=== PATIENT | female | born 1945 | race Caucasian/White ===

== ENCOUNTER → 2016-08-28 | Outpatient (CLI) | payer MEDICARE ==
[~2016-08-28] MED LIST: ASCO100083 PO; ATOR40TA70 PO; BUPIVACAINE 0.5% 30 ML (SENSORCAINE) VIAL ONE; CA C1TAB39 PO; CALCIUM; CARV12.53 PO; CARV25TA PO; CARV6.25 PO; CHOL100084 PO; CRV6.25T PO; DEXAMETHASONE PF 10 MG/ML (DECADRON) VIAL ONE; FAMO20TA5 PO; MAG; MEPIVACAINE (CARBOCAINE) 2% 50 ML VIAL ONE; MULT-974 PO; Multivitamin; RANI150T90 PO; STRESS; VITA1CAP21 PO; VITB1TAB PO; Vit B Complex; Vitamin C; Vitamin D; WARF5TAB6 PO; ZINC
--- OUTSIDE RECORDS SUMMARY | 2016-08-28 12:14 | XMS REPORT | Continuity of Care Document ---
Author Author [facility] Organization [facility] Address Unknown Phone Unavailable Care Team Providers Care Barker Peeler Name Role Phone MARCELLE GRACIA DO PCP Insurance Providers Payer Name Policy Number Subscriber Name Relationship Wps Medicare [id number] Denisha Avery Self / Same As Patient Self Pay Fin [place] [place] [employer] Review [id number] Denisha Avery Self / Same As Patient Advance Directives Directive Response Recorded Date/Time Advance Directives Yes 10/12/14 12:34pm Health Care Power of Quality Eng Yes 10/12/14 12:34pm Organ Donor Yes 10/12/14 12:34pm Resuscitation Status Full Code 10/12/14 12:34pm Problems No known problems or medical conditions. Medications Medication Dose Route Sig Days/Qty Instructions Order Date Discontinued Date Status Warfarin Sodium 5 Mg PO PM @ 1700 10/12/14 Active Carvedilol 3.125 Mg PO TWICE A DAY TAKES 1/2 (6.25MG) TABLET 10/12/14 10/17/14 Discontinued [Calcium, Mag, Zinc] 10/12/14 10/12/14 Discontinued [Vitamin C] 10/12/14 10/12/14 Discontinued [Vit B Complex] 10/12/14 10/12/14 Discontinued [Stress Tabs] 10/12/14 10/12/14 Discontinued [Multivitamin] 10/12/14 10/12/14 Discontinued [Vitamin D] 10/12/14 10/12/14 Discontinued Ca Carbonate/Mag Oxide/Cu/Znox 1 Tab PO DAILY 10/12/14 Active Ascorbic Acid 1,000 Mg PO DAILY 10/12/14 Active Vitamin B Complex 1 Cap PO BEDTIME 10/12/14 Active Vitb&C/Iron Fum/Fa/Vit E/Aa#16 1 Tab PO BEDTIME 10/12/14 Active Multivitamin 1 Tab PO BEDTIME 10/12/14 Active Cholecalciferol 1,000 Unit PO BEDTIME 10/12/14 Active Ca Carbonate/Mag Oxide/Cu/Znox 3 Tab PO BEDTIME 10/12/14 Active Ranitidine Hcl 150 Mg PO NOON 10/12/14 10/13/14 Discontinued Carvedilol 6.25 Mg PO TWICE A DAY 60 Qty 10/17/14 Active Social History Social History Problem Response Recorded Date/Time Alcohol Use Denies Use 10/12/2014 12:38pm Recreational Drug Use No 10/12/2014 12:38pm Recent Foreign Travel No 10/12/2014 12:38pm Recent Infectious Disease Exposure No 10/12/2014 12:38pm Hospitalization with Isolation Denies 10/17/2014 10:11pm Sexually Transmitted Disease No 10/12/2014 12:38pm HIV/AIDS No 10/12/2014 12:38pm Smoking Status Former Smoker 10/12/2014 12:35pm Query Response Start Date Stop Date Smoking Status Former Smoker 07/29/1999 Hospital Discharge Instructions Patient Instructions Physician Instructions Follow up/Plan Patient is to call Dr. Guevara's office for office visit and follow-up as well as call about getting enrolled in pacemaker clinic for a newly placed Medtronic since the pacemaker placed in his patient on October 15, 2014 Heart Healthy Diet Do not lift arm on side of device placement above head for 4 weeks. Do not push and pull heavy objects for 4 weeks. Activity as tolerated. Leave dressing on until follow up at the office. Plan of Care Discharge Date 10/17/14 9:35pm Disposition 30 STILL A PATIENT Instructions/Education Provided CHF Pacemaker (DC) Forms Provided PDI Pacemaker/ICD Prescriptions See Medications Section Referrals (Unspecified) Reason(s) for Referral: Please call the Dr Nixon office for follow up appt on saturday. Office number is [phone]. Please tell the staff he wants appt for Saturdayoctober 22. (Unspecified) Reason(s) for Referral: follow up appt with Dr Guevara, please call on saturday to schedule for pacemaker clinic and follow up in 1-2 weeks. Functional Status Query Response Date Recorded Comprehension Ability Understands Concepts October 17, 2014 8:00am Allergies, Adverse Reactions, Alerts Allergen Type Severity Reaction Status Last Updated CODIENE Adverse Reaction Unknown Active 06/02/10 Immunizations Name Given Type Date of Pneumonia Vaccine 07/29/10 Historical Date of Influenza Vaccine 05/06/14 Historical Tetanus Booster (TDap) More than 5yrs Historical Vital Signs Acute Vital Signs Vital Response Date/Time Temperature (Fahrenheit) 98.0 degrees F (97.6 - 99.5) Temperature (Calculated Celsius) 36.35200 degrees C (36.4 - 37.5) Temperature Source Tympanic Pulse Rate (adult) 60 bpm (60 - 90) Respiratory Rate 20 bpm (12 - 24) O2 Sat by Pulse Oximetry 95 % (88 - 100) Blood Pressure 143/83 mm Hg Pain Pain Intensity 0 Height (Feet) 5 feet Height (Inches) 1.00 inches Height (Calculated Centimeters) 154.375660 cm Weight (Pounds) 207 pounds Weight (Ounces) 6.0 oz Weight (Calculated Grams) 37164.622 gm Weight (Calculated Kilograms) 93.793784 kilograms Calculated BMI 39.11 Results Laboratory Results Test Name Result Units Flags Reference Collection Date/Time Result Date/ Time Comments White Blood Count 8.7 10^3/uL 4.3-11.0 10/15/2014 6:20am 10/15/2014 6: 38am Red Blood Count 3.99 10^6/uL L 4.35-5.85 10/15/2014 6:20am 10/15/2014 6: 38am Hemoglobin 12.2 G/DL 11.5-16.0 10/15/2014 6:20am 10/15/2014 6:38am Hematocrit 37 % 35-52 10/15/2014 6:20am 10/15/2014 6:38am Mean Corpuscular Volume 93 FL 80-99 10/15/2014 6:10/15/2014 6: 38am Mean Corpuscular Hemoglobin 31 PG 25-34 10/15/2014 6:10/15/2014 6: 38am Mean Corpuscular Hemoglobin Concent 33 G/DL 32-36 10/15/2014 6: 6:38am Red Cell Distribution Width 14.7 % H 10.0-14.5 10/15/2014 6:2014 6:38am Platelet Count 228 10^3/uL 130-400 10/15/2014 6:10/15/2014 6:38am Mean Platelet Volume 10.2 FL 7.4-10.4 10/15/2014 6:10/15/2014 6: 38am Neutrophils (%) (Auto) 71 % 42-75 10/15/2014 6:10/15/2014 6:38am Lymphocytes (%) (Auto) 19 % 12-44 10/15/2014 6:10/15/2014 6:38am Monocytes (%) (Auto) 8 % 0-12 10/15/2014 6:10/15/2014 6:38am Eosinophils (%) (Auto) 1 % 0-10 10/15/2014 6:10/15/2014 6:38am Basophils (%) (Auto) 1 % 0-10 10/15/2014 6:10/15/2014 6:38am Neutrophils # (Auto) 6.2 X 10^3 1.8-7.8 10/15/2014 6:10/15/2014 6: 38am Lymphocytes # (Auto) 1.7 X 10^3 1.0-4.0 10/15/2014 6:10/15/2014 6: 38am Monocytes # (Auto) 0.7 X 10^3 0.0-1.0 10/15/2014 6:10/15/2014 6: 38am Eosinophils # (Auto) 0.1 10^3/uL 0.0-0.3 10/15/2014 6:2010/15/2014 6 :38am Basophils # (Auto) 0.1 10^3/uL 0.0-0.1 10/15/2014 6:2010/15/2014 6: 38am Prothrombin Time 19.0 SEC H 12.2-14.7 10/17/2014 12:00pm 10/17/2014 12: 45pm INR Comment 1.6 H 0.8-1.4 10/17/2014 12:00pm 10/17/2014 12:45pm INTERPRETIVE DATA SUGGESTED THERAPEUTIC RANGE FOR INR'S: VENOUS THROMBOSIS, PULMONARY EMBOLISM, OR PREVENTION OF SYSTEMIC EMBOLISM (EG. IN ATRIAL FIBRILLATION): 2.0 - 3.0 MECHANICAL PROSTHETIC HEART VALVES: 2.5 - 3.5* *NOTE: INR'S UP TO 4.5 MAY BE NECESSARY IN SELECTED GROUPS OF HIGH RISK PATIENTS. [employer]ST [employer]ICIANS CONSENSUS CONFERENCE ON ANTITHROMBOTIC THERAPY (2000). Activated Partial Thromboplast Time 56 SEC H 24-35 10/12/2014 10:00am 10:25am Sodium Level 141 MMOL/L 135-145 10/15/2014 6:20am 10/15/2014 6:57am Potassium Level 4.1 MMOL/L 3.6-5.0 10/15/2014 6:20am 10/15/2014 6:57am Chloride Level 111 MMOL/L H 98-107 10/15/2014 6:20am 10/15/2014 6:57am Carbon Dioxide Level 20 MMOL/L L 21-32 10/15/2014 6:20am 10/15/2014 6: 57am Blood Urea Nitrogen 12 MG/DL 7-18 10/15/2014 6:20am 10/15/2014 6:57am Creatinine 0.65 MG/DL 0.60-1.30 10/15/2014 6:20am 10/15/2014 6:57am BUN/Creatinine Ratio 18 10/15/2014 6:20am 10/15/2014 6:57am Estimat Glomerular Filtration Rate > 60 10/15/2014 6:202014 6:57am GFR INTERPRETIVE DATA UNITS FOR ESTIMATED GFR (eGFR): mL/min/1.73 M2 REFERENCE RANGE FOR ESTIMATED GFR (eGFR) eGFR NORMAL eGFR >60 MODERATELY DECREASED eGFR 30-59 SEVERLY DECREASED eGFR 15-29 KIDNEY FAILURE <15 (OR DIALYSIS) Glucose Level 101 MG/DL 70-105 10/15/2014 6:20am 10/15/2014 6:57am Calcium Level 8.6 MG/DL 8.5-10.1 10/15/2014 6:20am 10/15/2014 6:57am Magnesium Level 2.0 MG/DL 1.8-2.4 10/12/2014 10:00am 10/12/2014 10: 32am Total Bilirubin 0.5 MG/DL 0.1-1.0 10/12/2014 10:00am 10/12/2014 10: 32am Alkaline Phosphatase 82 U/L 40-136 10/12/2014 10:00am 10/12/2014 10: 32am Aspartate Amino Transf (AST/SGOT) 20 U/L 5-34 10/12/2014 10:00am 2014 10:32am Alanine Aminotransferase (ALT/SGPT) 15 U/L 0-55 10/12/2014 10:00am 10:32am Total Creatine Kinase 38 U/L 29-168 10/12/2014 10:00am 10/12/2014 10: 32am Creatine Kinase MB 1.0 NG/ML <6.6 10/12/2014 10:00am 10/12/2014 10: 53am Troponin I < 0.30 NG/ML <0.30 10/13/2014 5:11am 10/13/2014 6:22am B-Type Natriuretic Peptide 166.0 PG/ML H <100.0 10/12/2014 10:00am 2014 10:40am Total Protein 8.0 G/DL 6.4-8.2 10/12/2014 10:00am 10/12/2014 10:32am Albumin 3.9 G/DL 3.2-4.5 10/12/2014 10:00am 10/12/2014 10:32am [facility] [place] Testing 2.28 UIU/ML 0.35-4.94 10/12/2014 10:00am 2014 10:53am Procedures Procedure Status Date Provider(s) Insertion of permanent pacemaker completed 10/15/14 NANI STOCK MD Tracing only of electrocardiogram completed 10/12/14 AMANDA JARAMILLO DO Color Doppler echocardiography completed 10/13/14 ALESSIO HUFFMAN MD Tracing only of electrocardiogram completed 10/13/14 ALESSIO HUFFMAN MD Tracing only of electrocardiogram completed 03/20/15 ALESSIO HUFFMAN MD Tracing only of electrocardiogram completed 10/15/14 ALESSIO HUFFMAN MD Encounters Encounter Location Date/Time Discharged Inpatient Via [facility] 10/14/14 3:11pm
== END ==
LOC: RAD 12:10
PROVIDERS: ATTEND Internal Medicine Cardiovascular Disease
DX: I70.213 Atherosclerosis of native arteries of extremities with intermittent claudication, bilateral legs (principal)
CPT/HCPCS: 93923

== ENCOUNTER → 2018-11-03 | Outpatient (CLI) | payer MEDICARE ==
[~2018-11-03] MED LIST changes: -BUPIVACAINE 0.5% 30 ML (SENSORCAINE) VIAL ONE; -DEXAMETHASONE PF 10 MG/ML (DECADRON) VIAL ONE; -MEPIVACAINE (CARBOCAINE) 2% 50 ML VIAL ONE
== END ==
LOC: CARD 11:42
PROVIDERS: ATTEND Nurse Practitioner Family
DX: I48.2 Chronic atrial fibrillation (principal); I51.7 Cardiomegaly; I08.1 Rheumatic disorders of both mitral and tricuspid valves
CPT/HCPCS: 93306

== ENCOUNTER 2020-08-30 06:05 | Emergency (ER) | payer MEDICARE ==
[~2020-08-30] VITALS: Ht 152 cm; Wt 80.0 kg
[2020-08-30] MEDS ORDERED: ASPIRIN 81 MG CHEW (CHILDREN'S ASA) ONE (06:14)
[2020-08-30] MEDS ORDERED: ASPIRIN 81 MG CHEW (CHILDREN'S ASA) PO ONE (06:30)
[2020-08-30 06:32] LABS: BASOPHILS # (AUTO) 0.1 10^3/uL (0.0-0.1); BASOPHILS % (AUTO) 1 % (0-10); EOSINOPHILS # (AUTO) 0.1 10^3/uL (0.0-0.3); EOSINOPHILS % (AUTO) 2 % (0-10); HEMATOCRIT 43 % (35-52); HEMOGLOBIN 14.2 g/dL (11.5-16.0); LYMPHOCYTES # (AUTO) 1.4 10^3/uL (1.0-4.0); LYMPHOCYTES % (AUTO) 20 % (12-44); MEAN CORPUSCULAR HEMOGLOBIN 30 pg (25-34); MEAN CORPUSCULAR HGB CONC 33 g/dL (32-36); MEAN CORPUSCULAR VOLUME 93 fL (80-99); MEAN PLATELET VOLUME 9.8 fL (9.0-12.2); MONOCYTES # (AUTO) 0.5 10^3/uL (0.0-1.0); MONOCYTES % (AUTO) 6 % (0-12); NEUTROPHILS # (AUTO) 5.2 10^3/uL (1.8-7.8); NEUTROPHILS % (AUTO) 71 % (42-75); PLATELET COUNT 239 10^3/uL (130-400); WHITE BLOOD COUNT 7.3 10^3/uL (4.3-11.0)
--- NOTE | 2020-08-30 06:40 | ED Chest Pain ---
General Chief Complaint: Chest Pain Stated Complaint: A-FIB Nursing Triage Note: TO ED VIA POV AND AMBULATORY TO ROOM 6 WITH C/O LEFT ARM PAIN, INTERMITTENT CP (HEAVINESS) STARTING YESTERDAY AT 0800, SOA WITH ACTIVITY. Nursing Sepsis Screen: No Definite Risk Source: patient Exam Limitations: no limitations History of Present Illness Date Seen by Provider: Aug 30, 2020 Time Seen by Provider: 06:05 Initial Comments Here with report of central chest pressure/heaviness and right arm feeling cold intermittently since yesterday. Started at about 8 AM. Worse with activity and resolves with rest. Has been happening throughout the night. Does have a pacemaker and has felt palpitations as well. Is short of breath with the vents but that also resolves with rest. Has had intermittent mild cough but no fever, chills, nausea, vomiting, sweating or diarrhea. Maximal 7 out of 10 but 0 out of 10 currently. Timing/Duration: 24 hours, intermittent, gone now Severity/Quality: moderate, pressure Location: central Radiation: no radiation Prior CP/Workup: cardiac cath, echocardiography, stress test ASA po NON DESTRUCTIVE TESTING SUPERVISOR: No NTG SL NON DESTRUCTIVE TESTING SUPERVISOR: No Associated Symptoms: No fever/chills; shortness of breath Allergies and Home Medications Allergies Uncoded Allergies: CODIENE (Adverse Reaction, Unknown, 06/02/10) Home Medications Ascorbic Acid 1,000 Mg Tab.chew, 1,000 MG PO HS, (Reported) Atorvastatin Calcium 40 Mg Tablet, 40 MG PO DAILY Prescribed by: RODGER MEYER on 11/23/14 1353 Ca Carbonate/Mag Oxide/Cu/Znox 1 Each Tablet, 3 TAB PO HS, (Reported) Carvedilol 12.5 Mg Tablet, 6.25 MG PO BID, (Reported) TAKES 1/2 (12.5MG) TABLET Cholecalciferol 1,000 Unit Tab, 1,000 UNIT PO HS, (Reported) Famotidine 20 Mg Tablet, 20 MG PO BID, (Reported) Multivitamin 1 Each Tablet, 1 TAB PO HS, (Reported) Vitamin B Complex 1 Cap Capsule, 1 CAP PO HS, (Reported) Vitb&C/Iron Fum/Fa/Vit E/Aa#16 1 Each Tablet, 1 TAB PO HS, (Reported) Warfarin Sodium 5 Mg Tablet, 5 MG PO PM @ 1700, (Reported) Patient Home Medication List Home Medication List Reviewed: Yes Review of Systems Review of Systems Constitutional: see HPI; No chills, No fever EENTM: No Symptoms Reported Respiratory: See HPI Cardiovascular: See HPI Gastrointestinal: Denies Abdominal Pain, Denies Nausea, Denies Vomiting Genitourinary: No Symptoms Reported Musculoskeletal: muscle pain, muscle cramps Skin: no symptoms reported Psychiatric/Neurological: No Symptoms Reported All Other Systems Reviewed Negative Unless Noted: Yes Past Pvotiud-Mlouls-Cjzxlc Hx Past Med/Social Hx: Reviewed Nursing Past Med/Soc Hx Patient Social History Alcohol Use: Denies Use Smoking Status: Former Smoker Recent Infectious Disease Expo: No Immunizations Up To Date Tetanus Booster (TDap): More than 5yrs Date of Pneumonia Vaccine: Jul 29, 2010 Date of Influenza Vaccine: May 06, 2014 Seasonal Allergies Seasonal Allergies: No Past Medical History Surgeries: Yes (Cataracts, Colonoscopy) Hysterectomy, Pacemaker Respiratory: No COPD Cardiac: Yes (CHF, Ischemic Heart Dz) Atrial Fibrillation, High Cholesterol Neurological: No 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 Uterus?) 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 Sexually Transmitted Disease: No HIV/AIDS: No Gastrointestinal: Yes Gastroesophageal Reflux, Diverticulosis, Hemorrhoids Musculoskeletal: Yes (Osteoarthritis) Endocrine: No Cataract Loss of Vision: Denies Hearing Impairment: Denies Cancer: Yes Uterine Psychosocial: No Integumentary: No Blood Disorders: No Family Medical History Reviewed Nursing Family Hx No Pertinent Family Hx Physical Exam Vital Signs Vital Signs - First Documented 08/30/20 06:07 Temp 37.1 Pulse 66 Resp 20 B/P (MAP) 165/69 (101) O2 Delivery Room Air Capillary Refill : Less Than 3 Seconds Height, Weight, BMI Height: 5'1.00" Weight: 202lbs. 6.0oz. 91.081743ee; 34.00 BMI Method:Stated General Appearance: No Apparent Distress, WD/WN HEENT: PERRL/EOMI, Pharynx Normal Neck: Non Tender, Supple Respiratory: Lungs Clear, Normal Breath Sounds Cardiovascular: Regular Rate, Rhythm, No Murmur Gastrointestinal: Non Tender, Soft Extremity: Normal Range of Motion, Non Tender Neurologic/Psychiatric: Alert, Oriented x3 Skin: Normal Color, Warm/Dry Progress/Results/Core Measures Results/Orders Lab Results Laboratory Tests Test 08/30/20 06:15 Range/Units White Blood Count 7.3 4.3-11.0 10^3/uL Red Blood Count 4.67 3.80-5.11 10^6/uL Hemoglobin 14.2 11.5-16.0 g/dL Hematocrit 43 35-52 % Mean Corpuscular Volume 93 80-99 fL Mean Corpuscular Hemoglobin 30 25-34 pg Mean Corpuscular Hemoglobin Concent 33 32-36 g/dL Red Cell Distribution Width 13.5 10.0-14.5 % Platelet Count 239 130-400 10^3/uL Mean Platelet Volume 9.8 9.0-12.2 fL Immature Granulocyte % (Auto) 0 % Neutrophils (%) (Auto) 71 42-75 % Lymphocytes (%) (Auto) 20 12-44 % Monocytes (%) (Auto) 6 0-12 % Eosinophils (%) (Auto) 2 0-10 % Basophils (%) (Auto) 1 0-10 % Neutrophils # (Auto) 5.2 1.8-7.8 10^3/uL Lymphocytes # (Auto) 1.4 1.0-4.0 10^3/uL Monocytes # (Auto) 0.5 0.0-1.0 10^3/uL Eosinophils # (Auto) 0.1 0.0-0.3 10^3/uL Basophils # (Auto) 0.1 0.0-0.1 10^3/uL Immature Granulocyte # (Auto) 0.0 0.0-0.1 10^3/uL Prothrombin Time 31.1 H 12.2-14.7 SEC INR Comment 3.0 H 0.8-1.4 Activated Partial Thromboplast Time 53 H 24-35 SEC Sodium Level 139 135-145 MMOL/L Potassium Level 4.1 3.6-5.0 MMOL/L Chloride Level 105 98-107 MMOL/L Carbon Dioxide Level 22 21-32 MMOL/L Anion Gap 12 5-14 MMOL/L Blood Urea Nitrogen 10 7-18 MG/DL Creatinine 0.73 0.60-1.30 MG/DL Estimat Glomerular Filtration Rate > 60 BUN/Creatinine Ratio 14 Glucose Level 102 70-105 MG/DL Calcium Level 9.3 8.5-10.1 MG/DL Corrected Calcium 9.3 8.5-10.1 MG/DL Magnesium Level 2.0 1.6-2.4 MG/DL Total Bilirubin 0.7 0.1-1.0 MG/DL Aspartate Amino Transf (AST/SGOT) 20 5-34 U/L Alanine Aminotransferase (ALT/SGPT) 14 0-55 U/L Alkaline Phosphatase 75 40-136 U/L Myoglobin 31.5 10.0-92.0 NG/ML Troponin I < 0.028 <0.028 NG/ML C-Reactive Protein High Sensitivity 0.33 0.00-0.50 MG/DL B-Type Natriuretic Peptide 95.0 <100.0 PG/ML Total Protein 7.6 6.4-8.2 GM/DL Albumin 4.0 3.2-4.5 GM/DL Coronavirus 2019 (ARMANDO) Negative Negative Micro Results Microbiology 08/30/20 Influenza Types A,B Antigen (SHANNON) - Final, Complete My Orders Orders - VJ GUZMAN MD Aspirin Chewable Tablet (Baby Aspirin Ch (08/30/20 06:14) Cbc With Automated Diff (08/30/20 06:18) Magnesium (08/30/20 06:18) Chest 1 View, Ap/Pa Only (08/30/20 06:18) Ekg Tracing (08/30/20 06:18) Comprehensive Metabolic Panel (08/30/20 06:18) Myoglobin Serum (08/30/20 06:18) Protime With Inr (08/30/20 06:18) Partial Thromboplastin Time (08/30/20 06:18) O2 (08/30/20 06:18) Monitor-Rhythm Ecg Trace Only (08/30/20 06:18) Lipid Panel (08/31/20 06:00) Ed Iv/Invasive Line Start (08/30/20 06:18) BNP (08/30/20 06:18) Aspirin Chewable Tablet (Baby Aspirin Ch (08/30/20 06:30) Influenza A And B Antigens (08/30/20 06:18) Covid 19 Inhouse Test (08/30/20 06:18) Hs C Reactive Protein (08/30/20 06:15) Troponin I (08/30/20 06:15) Medications Given in ED Current Medications Medications Dose Ordered Sig/Rocky Route Start Time Stop Time Status Last Admin Dose Admin Aspirin 81 mg STK-MED ONCE .ROUTE 08/30/20 06:14 08/30/20 06:19 DC 08/30/20 06:19 324 MG Vital Signs/I&O 08/30/20 08/30/20 06:07 06:07 Temp 37.1 Pulse 66 Resp 20 B/P (MAP) 165/69 (101) O2 Delivery Room Air Room Air Blood Pressure Mean: 101 Progress Progress Note : Progress Note Seen and evaluated on arrival. Due to new cough, patient placed in Covid precautions. Chest pain order set initiated. We will check rapid flu and COVID-19 test. ASA 324 mg p.o. given. Monitor patient. 0740: I have discussed the case with Dr. Turner. No significant findings on labs or evaluation overall. Patient is pain-free. It does appear that she has angina symptoms that may be becoming worse. Dr. Turner recommends that she follows up with Dr. De La Vega and patient is in full agreement with that. She is pain-free currently. Therapeutic INR. Discharged home with return precautions. Patient verbalized understanding of instructions and agreement with plan. Initial ECG Impression Date: Aug 30, 2020 Initial ECG Impression Time: 06:10 Initial ECG Rate: 66 Initial ECG Rhythm: A Fib/Flutter Comment A. fib with ventricular paced rhythm and left axis deviation. No evidence of ST elevation [place]. Similar to previous of 11/23/2014. Interpreted by me. Departure Impression Primary Impression: Chest pain Qualified Codes: R07.9 - Chest pain, unspecified Disposition: 01 HOME, SELF-CARE Condition: Stable Departure-Patient Inst. Decision time for Depature: 07:46 Referrals: RODGER MEYER MD [facility] MARCELLE GRACIA DO (PCP/Family) Primary Care Physician Patient Instructions: Chest Pain (DC) Add. Discharge Instructions: All discharge instructions reviewed with patient and/or family. Voiced understanding. Continue home medications as previously prescribed. Call Dr. Fierro's office today for appointment within the next week for recheck and further evaluation including stress test if indicated. Return for worse pain, chest pain not relieved by rest, fever, vomiting, weakness, breathing problems or other concerns as needed. Copy Copies To 1: [facility] Aug 30, 2020 06:40
[2020-08-30 06:43] LABS: PROTHROMBIN TIME PATIENT 31.1 SEC (12.2-14.7)
[2020-08-30 06:54] LABS: ALANINE AMINOTRANSFERASE 14 U/L (0-55); ALKALINE PHOSPHATASE 75 U/L (40-136); BILIRUBIN,TOTAL 0.7 MG/DL (0.1-1.0); BUN/CREATININE RATIO 14; CALCIUM 9.3 MG/DL (8.5-10.1); CARBON DIOXIDE 22 MMOL/L (21-32); CHLORIDE 105 MMOL/L (98-107); CREATININE SERUM 0.73 MG/DL (0.60-1.30); GFR ESTIMATED > 60; GLUCOSE 102 MG/DL (70-105); POTASSIUM 4.1 MMOL/L (3.6-5.0); SODIUM 139 MMOL/L (135-145); TOTAL PROTEIN 7.6 GM/DL (6.4-8.2)
--- NOTE | 2020-08-30 07:04 | Diagnostic Imaging Report ---
Indication: Cardiac pacemaker, chest pains. Comparison: 10/12/2014 Findings: Single view of the chest demonstrates stable cardiac enlargement. The lungs are clear. There is no pneumothorax. Pacemaker stable. Osseous structures are age-appropriate. Impression: Stable slight cardiac enlargement without pulmonary edema or acute infiltrate. Dictated by: Dictated on workstation # [id number]
[2020-08-30 07:40] VITALS: BP 146/78
== END 2020-08-30 07:50 | disposition home or self-care (01) ==
LOC: EDUNIT# 06:05 → ER 06:06
DX: R07.9 Chest pain, unspecified (principal); I48.91 Unspecified atrial fibrillation; K21.9 Gastro-esophageal reflux disease without esophagitis; E78.00 Pure hypercholesterolemia, unspecified; Z20.822 Contact with and (suspected) exposure to COVID-19; Z88.5 Allergy status to narcotic agent; Z95.9 Presence of cardiac and vascular implant and graft, unspecified; Z85.42 Personal history of malignant neoplasm of other parts of uterus; Z95.0 Presence of cardiac pacemaker; Z87.891 Personal history of nicotine dependence; Z79.01 Long term (current) use of anticoagulants
CPT/HCPCS: 71045; 80053; 83735; 83874; 83880; 84484; 85025; 85610; 85730; 86141; 87804; 93005; 93041; U0002; 36415; 87635

== ENCOUNTER 2020-09-02 10:11 | Outpatient (RCR) | payer MEDICARE, OTHER ==
[2020-09-20] MEDS ORDERED: ONDA4TAB11 PO (15:34)
[2020-09-20] MEDS ORDERED: HYDR25CA PO (15:53)
== END 2020-12-01 | disposition home or self-care (01) ==
LOC: CARD 10:11
PROVIDERS: ATTEND Internal Medicine
DX: R00.2 Palpitations (principal)
CPT/HCPCS: 93225; 93226

== ENCOUNTER 2020-09-13 08:00 | Day surgery (SDC) | payer MEDICARE ==
[2020-09-13] VITALS (10 sets, daily range): BP systolic 99–128; BP diastolic 47–70
[~2020-09-13] VITALS: Ht 152 cm; Wt 80.0 kg
[2020-09-13 07:29] LABS: HEMOGLOBIN 14.3 g/dL (11.5-16.0); WHITE BLOOD COUNT 8.1 10^3/uL (4.3-11.0)
[2020-09-13 07:49] LABS: INR 1.8 (0.8-1.4); PROTHROMBIN TIME PATIENT 20.8 SEC (12.2-14.7)
[2020-09-13 07:51] LABS: ALANINE AMINOTRANSFERASE 9 U/L (0-55); ALBUMIN 4.1 GM/DL (3.2-4.5); ALKALINE PHOSPHATASE 68 U/L (40-136); BILIRUBIN,TOTAL 0.8 MG/DL (0.1-1.0); BUN/CREATININE RATIO 17; CALCIUM 9.1 MG/DL (8.5-10.1); CARBON DIOXIDE 21 MMOL/L (21-32); CHLORIDE 106 MMOL/L (98-107); CHOLESTEROL 216 MG/DL (< 200); CREATININE SERUM 0.76 MG/DL (0.60-1.30); GFR ESTIMATED > 60; GLUCOSE 102 MG/DL (70-105); HDL CHOLESTEROL 43 MG/DL (40-60); POTASSIUM 4.3 MMOL/L (3.6-5.0); SODIUM 140 MMOL/L (135-145); TOTAL PROTEIN 7.9 GM/DL (6.4-8.2); TRIGLYCERIDES 123 MG/DL (<150); VLDL CHOLESTEROL 25 MG/DL (5-40)
[~2020-09-13 08:00] MED LIST changes: +HEParin (CATH LAB) 2,000 ML IV ONE; +LIDOCAINE 1% INJ 20 ML 20 ML VIAL ONE; +NS IV 1000 ML 1,000 ML IV SCH; +NS IV 1000 ML 1,000 ML ONE
[2020-09-13] MEDS ORDERED: fentaNYL INJECTION 100 MCG/2 ML AMP ONE (08:45)
[2020-09-13] MEDS ORDERED: MIDAZOLAM 5 MG/5 ML (VERSED) VIAL ONE (08:45)
--- NOTE | 2020-09-13 09:42 | Cardiac Procedure Note-CS/ASA ---
Pre-Procedure Note Pre-Op Procedure Note H&P Reviewed The H&P was reviewed, patient examined and no changes noted. Date H&P Reviewed: Sep 13, 2020 Time H&P Reviewed: 09:00 Conscious Sedation Pre-Proced Time 09:00 ASA Score 3 For ASA 3 and 4: Consider anesthesia and medical clearance. Also, for patients with a history of failed moderate sedation consider anesthesia. Airway Lungs Heart ASA score ASA 1: a normal healthy patient ASA 2: a patient with a mild systemic disease (mid diabetes, controlled hypertension, obesity ASA 3: a patient with a severe systemic disease that limits activity (angina, COPD, prior Myocardial infarction) ASA 4: a patient with an incapacitating disease that is a constant threat to life (CHF, renal failure) ASA 5: a moribund patient not expected to survive 24 hrs. (ruptured aneurysm) ASA 6: a declared brain- patient whose organs are being harvested. For emergent operations, add the letter E after the classification Mallampati Classification Grade 2 Sedation Plan Analgesia, Amnesia, Plan communicated to team members, Discussed options with patient/fam, Discussed risks with patient/fam The patient is an appropriate candidate to undergo the planned procedure, sedation, and anesthesia. The patient immediately re-assessed prior to indication. RODGER MEYER MD FACP FAC CCDS Sep 13, 2020 09:41
[2020-09-13] MEDS ORDERED: NS IV 1000 ML 1,000 ML IV SCH (09:45)
[2020-09-13] MEDS ORDERED: PATIENT MAY USE OWN MEDS, ALL PO SCH (09:45)
--- NOTE | 2020-09-13 09:45 | Discharge Inst-Cardiology ---
Discharge Inst-Cardiac Discharge Medications Continued Medications: Ascorbic Acid (Vitamin C) 1,000 Mg Tab.chew 1000 MG PO HS Atorvastatin Calcium (Atorvastatin Calcium) 40 Mg Tablet 40 MG PO DAILY, #30 TAB 5 Refills Ca Carbonate/Mag Oxide/Cu/Znox (Pqxjsot-Rjxkpnvkt-Pyvw Tab) 1 Each Tablet 3 TAB PO HS Carvedilol (Carvedilol) 12.5 Mg Tablet 6.25 MG PO BID TAKES 1/2 (12.5MG) TABLET Cholecalciferol (Vitamin D) 1,000 Unit Tab 1000 UNIT PO HS Famotidine (Pepcid) 20 Mg Tablet 20 MG PO BID Multivitamin (Multi Vitamin Daily) 1 Each Tablet 1 TAB PO HS Vitamin B Complex (Vitamin B Complex) 1 Cap Capsule 1 CAP PO HS Vitb&C/Iron Fum/Fa/Vit E/Aa#16 (Stress Formula Energy Tablet) 1 Each Tablet 1 TAB PO HS Warfarin Sodium (Warfarin Sodium) 5 Mg Tablet 5 MG PO PM @ 1700 RODGER MEYER MD FACP FACC CCDS Sep 13, 2020 09:45
--- NOTE | 2020-09-13 09:46 | Discharge Inst-Post CATH ---
Discharge Inst-CATH/EP Post Cardiac Cath/EP D/C Inst Follow Up/Plan F/u with Dr Guevara in 3-4 weeks ACTIVITY * Go Home directly and rest. * Limit activity of the leg (or wrist if it was used) for 7 days including aerobics, swimming, jogging, bicycling, etc. * Restrict stair-climbing for 7 days if possible, if not, climb up with your non-cath leg, then bring together on the same step. * Avoid lifting, pushing, pulling or excessive movement of the affected extremity for 7 days. * Customary sexual activity may be resumed after 2 days-use caution not to use a position that strains or causes pain to the affected extremity. * No driving for 24 hours. * NO SMOKING. * Avoid straining for bowel movements for 7 days. * Gentle walking on level ground is allowed. * Returning to work will depend on the type of procedure and the results. Your doctor will discuss this with you. CALL YOUR DOCTOR FOR ANY OF THE FOLLOWING: *If bleeding from the puncture site occurs- Apply gentle pressure to site with clean cloth and call your doctor or EMS. * If a knot or lump forms under the skin, increases in size, or causes pain. * If bruising appears to be worsening or moving further down your leg instead of disappearing. * Temperature above 101 F. CARE OF YOUR GROIN INCISION; * Bruising or purple discoloration of the skin near the puncture site is common. * You may shower only, no bathtub bathing for 5 days. Be careful to avoid slipping as your leg may feel stiff. * If a closure device was used on your femoral artery, please see the attached guide regarding care of the device and your leg. * Leave dressing on FOR 24 hours. CARE OF YOUR WRIST INCISION; * Bruising or purple discoloration of the skin near the puncture site is common. * You may shower. * DO NOT submerge wrist. * Leave dressing on FOR 24 hours. RODGER GUEVARA MD [facility] CCDS Sep 13, 2020 09:46
--- NOTE | 2020-09-13 10:17 | CARDIAC CATHETERIZATION ---
DATE OF SERVICE: 09/13/2020 CARDIAC CATHETERIZATION REPORT INDICATION FOR PROCEDURE: The patient is a 75-year-old lady, who has coronary risk factors and who has been experiencing shortness of breath, which was suspected to be an angina equivalent. Cardiac catheterization was carried out today after having obtained an informed consent. DESCRIPTION OF PROCEDURE: She was brought to the cardiac catheterization laboratory in a fasting state. Right groin was prepared and draped in the usual sterile fashion. Lidocaine 1% was used for local anesthesia. Modified Seldinger technique was used to advance a 5-Lao sheath into the right femoral artery, 5-Lao JL4 catheter was used for left coronary angiography, 5-Lao JR4 catheter was used for right coronary angiography, 5-Lao pigtail catheter was used for left heart catheterization and left ventricular angiography. There appeared to be calcification in the aortic arch. We carried out aortic arch angiography using a 5-Lao pigtail catheter. The catheter was then removed. Angiography of the right femoral artery had been carried out through the sheath at the beginning of the procedure. At the end of the procedure, Mynx was used to achieve hemostasis. She tolerated the procedure well. HEMODYNAMICS: Left ventricular end-diastolic pressure following coronary angiography was 9 mmHg. There was no significant pressure gradient on pullback across the aortic valve. Ascending aortic pressure was 108/52 with a mean of 74 mmHg. CORONARY ANGIOGRAPHY: Mild coronary calcification is seen. Left main coronary artery is free of significant disease. Left anterior descending artery has mild diffuse disease with stenosis of up to approximately 30%. Left circumflex artery is large and codominant. It has mild plaque. Right coronary artery is small and codominant. The right coronary artery exhibits mild plaques. LEFT VENTRICULAR ANGIOGRAPHY: Left ventricular angiography was carried out in the right anterior oblique projection. Global left ventricular systolic function is well preserved. Left ventricular ejection fraction approximately 50% to 55%. AORTIC ARCH ANGIOGRAPHY: Aortic arch angiography did not indicate significant calcification of the aortic arch. Some calcification is seen in the neck arteries. The right brachiocephalic trunk provides both carotid arteries and the right subclavian artery. The left subclavian artery originates separately from the right brachiocephalic trunk. There does not appear to be significant stenoses in the extent of the neck vessels were visualized on this angiogram. CONCLUSIONS: 1. Relatively mild coronary artery disease. 2. Well preserved global left ventricular systolic function with ejection fraction approximately 50% to 55%. 3. Normal left ventricular end-diastolic pressure. DISCUSSION AND RECOMMENDATIONS: Based on results of the study, her shortness of breath does not appear to be of cardiac origin. Continuing risk factor modification is advised. Continuing outpatient followup is advised. Job ID: [id number] DocumentID: [id number] Dictated Date: 09/13/2020 09:51:34 [facility] Author Date: 09/13/2020 10:16:26 Dictated By: RODGER MEYER MD, MA, FACP, FACC, MTDD
== END 2020-09-13 13:01 | disposition home or self-care (01) ==
LOC: CATH 08:00 → SDC 10:06 → CATH 13:01
PROVIDERS: ATTEND Internal Medicine Cardiovascular Disease
DX: I25.10 Atherosclerotic heart disease of native coronary artery without angina pectoris (principal); I48.21 Permanent atrial fibrillation; I49.5 Sick sinus syndrome; I49.3 Ventricular premature depolarization; I45.2 Bifascicular block; E78.2 Mixed hyperlipidemia; E66.9 Obesity, unspecified; Z68.34 Body mass index [BMI] 34.0-34.9, adult; Z87.891 Personal history of nicotine dependence; Z88.5 Allergy status to narcotic agent; Z88.8 Allergy status to other drugs, medicaments and biological substances; Z79.01 Long term (current) use of anticoagulants; Z79.899 Other long term (current) drug therapy; Z95.0 Presence of cardiac pacemaker; Z80.9 Family history of malignant neoplasm, unspecified
CPT/HCPCS: 36221; 80053; 80061; 85027; 85610; 85730; 87081; 93225; 93226; 93458; C1760; C1894; 36415

== ENCOUNTER 2020-09-20 14:22 | Emergency (ER) | payer MEDICARE ==
[~2020-09-20] VITALS: Ht 152 cm; Wt 80.0 kg
[~2020-09-20 14:22] MED LIST changes: -HEParin (CATH LAB) 2,000 ML IV ONE; -LIDOCAINE 1% INJ 20 ML 20 ML VIAL ONE; -NS IV 1000 ML 1,000 ML IV SCH; -NS IV 1000 ML 1,000 ML ONE
[2020-09-20] MEDS ORDERED: NS IV 1000 ML 1,000 ML ONE (14:38)
[2020-09-20] MEDS ORDERED: ONDANSETRON 4 MG/2 ML (SDV) Z0FRAN ONE (14:38)
[2020-09-20] MEDS ORDERED: ASPIRIN 81 MG CHEW (CHILDREN'S ASA) ONE (14:42)
[2020-09-20] MEDS ORDERED: NS IV 1000 ML 1,000 ML IV SCH (14:45)
[2020-09-20] MEDS ORDERED: ONDANSETRON 4 MG/2 ML (SDV) Z0FRAN IVP ONE (14:45)
[2020-09-20 14:53] LABS: BASOPHILS # (AUTO) 0.1 10^3/uL (0.0-0.1); BASOPHILS % (AUTO) 1 % (0-10); EOSINOPHILS # (AUTO) 0.1 10^3/uL (0.0-0.3); EOSINOPHILS % (AUTO) 2 % (0-10); HEMATOCRIT 41 % (35-52); HEMOGLOBIN 13.6 g/dL (11.5-16.0); LYMPHOCYTES # (AUTO) 1.5 10^3/uL (1.0-4.0); LYMPHOCYTES % (AUTO) 21 % (12-44); MEAN CORPUSCULAR HEMOGLOBIN 31 pg (25-34); MEAN CORPUSCULAR HGB CONC 33 g/dL (32-36); MEAN CORPUSCULAR VOLUME 93 fL (80-99); MEAN PLATELET VOLUME 9.8 fL (9.0-12.2); MONOCYTES # (AUTO) 0.6 10^3/uL (0.0-1.0); MONOCYTES % (AUTO) 8 % (0-12); NEUTROPHILS # (AUTO) 4.8 10^3/uL (1.8-7.8); NEUTROPHILS % (AUTO) 68 % (42-75); PLATELET COUNT 254 10^3/uL (130-400); WHITE BLOOD COUNT 7.2 10^3/uL (4.3-11.0)
[2020-09-20 14:55] LABS: ALBUMIN 4.1 GM/DL (3.2-4.5)
[2020-09-20 14:56] LABS: CHLORIDE 109 MMOL/L (98-107); SODIUM 140 MMOL/L (135-145)
[2020-09-20 14:57] LABS: AMYLASE 49 U/L (25-125); CALCIUM 8.7 MG/DL (8.5-10.1)
--- NOTE | 2020-09-20 14:57 | ED Respiratory ---
General Stated Complaint: SOB,NV,WEAKNESS, History of Present Illness Date Seen by Provider: Sep 20, 2020 Time Seen by Provider: 14:30 Initial Comments 75-year-old female presents for shortness of air and nausea with generalized weakness for the last month. She denies chest pain, diaphoresis, arm or neck pain, or history of diabetes. She has been eating a few crackers a day and trying to stay hydrated but does not have any appetite for 1 month, was started on pill for stomach acid by her PCP, told if this doesn't improve her symptoms she will need EGD to evaluate for ulcer. She was unable to get in with her primary care provider until tomorrow. She has been seen in the last month in the emergency department for chest pain and had a cardiac catheterization 1 week ago that was essentially normal. Her shortness of air did not seem to come from a cardiac nature. She has a history of pacemaker and A. fib she is on Coumadin daily. She is not on any inhalers or chronic respiratory medications. She reports mild anxiety but no increased stressors. She denies any vomiting or diarrhea. Patient was tested for Covid and negative on 08-30-20. Symptoms are not worse today, patient just reports she is tired of not being able to sleep and couldn't get into her PCP until tomorrow. Timing/Duration: intermittent Severity: mild (For month) Prior Episodes/Possible Cause: occasional episodes Associated Symptoms: No chest pain/soreness, No cough, No dizziness, No fever/chills, No headache, No lightheadedness, No muscle aches, No nasal congestion, No nasal drainage; shortness of breath; No sinus infection, No sore throat, No wheezing Allergies and Home Medications Allergies Coded Allergies: codeine (Unverified Allergy, Unknown, 09/13/20) Home Medications Ascorbic Acid 1,000 Mg Tab.chew, 1,000 MG PO HS, (Reported) Atorvastatin Calcium 40 Mg Tablet, 40 MG PO DAILY Prescribed by: RODGER MEYER on 11/23/14 1353 Ca Carbonate/Mag Oxide/Cu/Znox 1 Each Tablet, 3 TAB PO HS, (Reported) Carvedilol 12.5 Mg Tablet, 6.25 MG PO BID, (Reported) TAKES 1/2 (12.5MG) TABLET Cholecalciferol 1,000 Unit Tab, 1,000 UNIT PO HS, (Reported) Famotidine 20 Mg Tablet, 20 MG PO BID, (Reported) Multivitamin 1 Each Tablet, 1 TAB PO HS, (Reported) Ondansetron 4 Mg Tab.rapdis, 4 MG PO Q6H PRN for NAUSEA-1ST LINE Prescribed by: VIRGINIA HOOD on 09/20/20 1534 Vitamin B Complex 1 Cap Capsule, 1 CAP PO HS, (Reported) Vitb&C/Iron Fum/Fa/Vit E/Aa#16 1 Each Tablet, 1 TAB PO HS, (Reported) Warfarin Sodium 5 Mg Tablet, 5 MG PO PM @ 1700, (Reported) Patient Home Medication List Home Medication List Reviewed: Yes Review of Systems Review of Systems Constitutional: no symptoms reported, see HPI Respiratory: see HPI; No cough; dyspnea on exertion; No hemoptysis; short of breath; No wheezing Cardiovascular: no symptoms reported, see HPI; No chest pain Gastrointestinal: see HPI; No abdominal pain, No constipation, No diarrhea, No dysphagia; loss of appetite, nausea; No vomiting Genitourinary: no symptoms reported, see HPI Musculoskeletal: no symptoms reported, see HPI Skin: no symptoms reported, see HPI All Other Systems Reviewed Negative Unless Noted: Yes Past Ntozuqb-Lskjwp-Aocbkd Hx Past Med/Social Hx: Reviewed Nursing Past Med/Soc Hx Immunizations Up To Date Tetanus Booster (TDap): More than 5yrs Date of Pneumonia Vaccine: Jul 29, 2010 Date of Influenza Vaccine: May 06, 2014 Seasonal Allergies Seasonal Allergies: No Past Medical History Surgeries: Yes (Cataracts, Colonoscopy) Hysterectomy, Pacemaker Respiratory: No COPD Cardiac: Yes (CHF, Ischemic Heart Dz) Atrial Fibrillation, High Cholesterol Neurological: No 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?) 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 6.0oz. 91.235305ju; 34.62 BMI Method:Stated General Appearance: WD/WN, no apparent distress Eyes: Bilateral Eye Normal Inspection, Bilateral Eye PERRL, Bilateral Eye EOMI HEENT: PERRL/EOMI, normal ENT inspection, TMs normal, pharynx normal Neck: non-tender, full range of motion, supple, normal inspection Respiratory: chest non-tender, lungs clear, normal breath sounds, no respiratory distress, no accessory muscle use Cardiovascular: normal peripheral pulses, no edema, no murmur, irregularly irregular Gastrointestinal: normal bowel sounds, non tender, soft; No distended, No rebound, No tenderness Extremities: normal range of motion, non-tender, normal inspection, no pedal edema Neurologic/Psychiatric: no motor/sensory deficits, alert, normal mood/affect, oriented x 3 Skin: normal color, warm/dry Progress/Results/Core Measures Suspected Sepsis SIRS Temperature: Pulse: Respiratory Rate: Laboratory Tests 09/20/20 14:40: White Blood Count 7.2 Blood Pressure / Mean: Laboratory Tests 09/20/20 14:40: Creatinine 0.74, INR Comment 3.0H, Platelet Count 254, Total Bilirubin 0.7 Results/Orders Lab Results Laboratory Tests Test 09/20/20 14:35 09/20/20 14:40 Range/Units Coronavirus 2019 ([facility]) Negative Negative White Blood Count 7.2 4.3-11.0 10^3/uL Red Blood Count 4.40 3.80-5.11 10^6/uL Hemoglobin 13.6 11.5-16.0 g/dL Hematocrit 41 35-52 % Mean Corpuscular Volume 93 80-99 fL Mean Corpuscular Hemoglobin 31 25-34 pg Mean Corpuscular Hemoglobin Concent 33 32-36 g/dL Red Cell Distribution Width 13.6 10.0-14.5 % Platelet Count 254 130-400 10^3/uL Mean Platelet Volume 9.8 9.0-12.2 fL Immature Granulocyte % (Auto) 0 % Neutrophils (%) (Auto) 68 42-75 % Lymphocytes (%) (Auto) 21 12-44 % Monocytes (%) (Auto) 8 0-12 % Eosinophils (%) (Auto) 2 0-10 % Basophils (%) (Auto) 1 0-10 % Neutrophils # (Auto) 4.8 1.8-7.8 10^3/uL Lymphocytes # (Auto) 1.5 1.0-4.0 10^3/uL Monocytes # (Auto) 0.6 0.0-1.0 10^3/uL Eosinophils # (Auto) 0.1 0.0-0.3 10^3/uL Basophils # (Auto) 0.1 0.0-0.1 10^3/uL Immature Granulocyte # (Auto) 0.0 0.0-0.1 10^3/uL Prothrombin Time 31.6 H 12.2-14.7 SEC INR Comment 3.0 H 0.8-1.4 Activated Partial Thromboplast Time 45 H 24-35 SEC D-Dimer 0.65 H 0.00-0.49 UG/ML Sodium Level 140 135-145 MMOL/L Potassium Level 4.0 3.6-5.0 MMOL/L Chloride Level 109 H 98-107 MMOL/L Carbon Dioxide Level 22 21-32 MMOL/L Anion Gap 9 5-14 MMOL/L Blood Urea Nitrogen 9 7-18 MG/DL Creatinine 0.74 0.60-1.30 MG/DL Estimat Glomerular Filtration Rate > 60 BUN/Creatinine Ratio 12 Glucose Level 106 H 70-105 MG/DL Calcium Level 8.7 8.5-10.1 MG/DL Corrected Calcium 8.6 8.5-10.1 MG/DL Total Bilirubin 0.7 0.1-1.0 MG/DL Aspartate Amino Transf (AST/SGOT) 17 5-34 U/L Alanine Aminotransferase (ALT/SGPT) 12 0-55 U/L Alkaline Phosphatase 65 40-136 U/L Troponin I < 0.028 <0.028 NG/ML C-Reactive Protein High Sensitivity 0.26 0.00-0.50 MG/DL Total Protein 7.4 6.4-8.2 GM/DL Albumin 4.1 3.2-4.5 GM/DL Amylase Level 49 25-125 U/L Lipase 35 8-78 U/L TSH [place] Testing 1.89 0.35-4.94 UIU/ML My Orders Orders - VIRGINIA HOOD 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 Ns Iv 1000 Ml (Sodium Chloride 0.9%) (09/20/20 14:38) Ondansetron Injection (Zofran Injectio (09/20/20 14:38) Covid 19 Inhouse Test (09/20/20 14:43) Ed Iv/Invasive Line Start (09/20/20 14:43) Ns Iv 1000 Ml (Sodium Chloride 0.9%) (09/20/20 14:45) Ondansetron Injection (Zofran Injectio (09/20/20 14:45) Troponin I (09/20/20 14:43) Chest 1 View, Ap/Pa Only (09/20/20 14:43) Ekg Tracing (09/20/20 14:43) Monitor-Rhythm Ecg Trace Only (09/20/20 14:43) Amylase (09/20/20 14:43) Cbc With Automated Diff (09/20/20 14:43) Comprehensive Metabolic Panel (09/20/20 14:43) Hs C Reactive Protein (09/20/20 14:43) Lipase (09/20/20 14:43) Protime With Inr (09/20/20 14:43) Partial Thromboplastin Time (09/20/20 14:43) Aspirin Chewable Tablet (Baby Aspirin Ch (09/20/20 15:00) Aspirin Chewable Tablet (Baby Aspirin Ch (09/20/20 14:42) BNP (09/20/20 15:00) Thyroid Analyzer (09/20/20 15:00) Fibrin Degradation Products (09/20/20 15:05) Hydroxyzine Cap/Tab (Vistaril) (09/20/20 15:45) Medications Given in ED Current Medications Medications Dose Ordered Sig/Rocky Route Start Time Stop Time Status Last Admin Dose Admin Aspirin 324 mg ONCE ONCE PO 09/20/20 15:00 09/20/20 15:01 DC 09/20/20 14:50 324 MG Hydroxyzine Pamoate 25 mg ONCE ONCE PO 09/20/20 15:45 09/20/20 15:46 DC 09/20/20 15:46 25 MG Ondansetron HCl 8 mg ONCE ONCE IVP 09/20/20 14:45 09/20/20 14:47 DC 09/20/20 14:48 8 MG Vital Signs/I&O 09/20/20 14:25 Temp 36.8 Pulse 86 Resp 18 B/P (MAP) 151/70 (97) Pulse Ox 98 Capillary Refill : Progress Note : Time: 14:30 Progress Note Patient seen and evaluated, will obtain labs, EKG, and chest x-ray. Patient reassured that her vital signs appear normal. Her SaO2 on room air is 98 to 99%. Her heart rate is 60-70. She is normotensive. Approx every 2-3 min patient takes an exagerated deep breath, says she feels like she can't catch her breath. No change in her SaO2 prior to this. Reports she has been unable to sleep for approximately 1 week due to nausea, that makes her have a hot or cold sensation over her body and sometimes is associated with SOA. Applied O2 at 1L per NC to see if this improves her SOA, SaO2 remained 98-99%, patient reports mild improvement. 1500 Oxygen removed, continues to deny SOA at this time. 1515 Nausea better after Zofran, reports no appetite. Will try Vistaril 25 mg, to see if symptoms improve and related to anxiety. Discussed CT angio, since her VS are stable and SaO2 is 98-99% on RA, very unlikely to be a PE, symptoms are more GI related. Patient agrees. Therapeutic on Coumadin for A-fib 1545 Patient continues to be asymptomatic. No complains of Nausea or SOA. She is not experiencing the hot or cold feelings. updated by phone. 1600 discharge instructions and return precautions reviewed with the patient. All questions answered. ECG Initial ECG Impression Date: Sep 20, 2020 Initial ECG Impression Time: 14:44 Initial ECG Rate: 63 Initial ECG Rhythm: A Fib/Flutter Initial ECG Intervals NV 179, QRSD 142, QT 456, QTc 467. Carpenter P0, QRS -62, T 136. Initial ECG Impression: Atrial Fibrillation Initial ECG Comparisson: Unchanged Diagnostic Imaging Diagonstic Imaging: Xray Plain Films/CT/US/NM/MRI: chest Comments NAME: [facility]EREMY [facility] REC#: [id number] PT STATUS: REG ER : 1945 PHYSICIAN: VIRGINIA HOOD ADMIT DATE: 09/20/20/ER Draft Date of Exam:09/20/20 CHEST 1 VIEW, AP/PA ONLY INDICATION: Chest pain. Comparison with 08/30/2020. FINDINGS: Cardiomegaly is again noted with pacemaker on the left. The lungs are well-aerated. There is no evidence of pulmonary edema. There are no infiltrates. No pneumothorax or pleural effusion. IMPRESSION: Cardiomegaly with no acute abnormalities demonstrated. Dictated on workstation # [id number] Dict: 09/20/20 1511 Trans: 09/20/20 1514 [facility] [id number] Interpreted by: TITA THORPE MD Electronically signed by: Reviewed: Reviewed by Me Departure Impression Primary Impression: Nausea alone Additional Impression: Appetite absent Disposition: HOME, SELF-CARE Condition: Improved Departure-Patient Inst. Decision time for Depature: 15:40 Referrals: MARCELLE SAUNDERS DO (PCP/Family) Primary Care Physician Patient Instructions: Peptic Ulcers (DC) Add. Discharge Instructions: Take Zofran every 6-8 hours as needed for nausea. Vistaril every 6-8 hours for anxiety or at bedtime. Continue your home medications as prescribed by Dr. Saunders. Your scheduled appointment tomorrow with your primary care provider. Return to the emergency department for shortness of breath that is persistent or related to chest pain. [place] diet as tolerated, eat small frequent meals. Scripts Hydroxyzine Pamoate (Vistaril) 25 Mg Capsule 25 MG PO Q8H PRN for ANXIETY, #12 CAP 0 Refills Prov: VIRGINIA HOOD 09/20/20 Ondansetron (Ondansetron Odt) 4 Mg Tab.rapdis 4 MG PO Q6H PRN for NAUSEA-1ST LINE, #20 TAB 0 Refills Prov: VIRGINIA HOOD 09/20/20 Copy Copies To 1: MARCELLE SAUNDERS DO Copies To 2: RODGER MEYER MD [facility] VIRGINIA HOOD Sep 20, 2020 14:56
[2020-09-20 14:58] LABS: GLUCOSE 106 MG/DL (70-105); TOTAL PROTEIN 7.4 GM/DL (6.4-8.2)
[2020-09-20 14:59] LABS: CARBON DIOXIDE 22 MMOL/L (21-32)
[2020-09-20 15:00] LABS: BILIRUBIN,TOTAL 0.7 MG/DL (0.1-1.0)
[2020-09-20] MEDS ORDERED: ASPIRIN 81 MG CHEW (CHILDREN'S ASA) PO ONE (15:00)
[2020-09-20 15:02] LABS: ALKALINE PHOSPHATASE 65 U/L (40-136); CREATININE SERUM 0.74 MG/DL (0.60-1.30); GFR ESTIMATED > 60
[2020-09-20 15:03] LABS: BUN/CREATININE RATIO 12
[2020-09-20 15:05] LABS: ALANINE AMINOTRANSFERASE 12 U/L (0-55); LIPASE 35 U/L (8-78)
--- NOTE | 2020-09-20 15:14 | Diagnostic Imaging Report ---
INDICATION: Chest pain. Comparison with 08/30/2020. FINDINGS: Cardiomegaly is again noted with pacemaker on the left. The lungs are well-aerated. There is no evidence of pulmonary edema. There are no infiltrates. No pneumothorax or pleural effusion. IMPRESSION: Cardiomegaly with no acute abnormalities demonstrated. Dictated by: Dictated on workstation # [id number]
[2020-09-20 15:20] LABS: PROTHROMBIN TIME PATIENT 31.6 SEC (12.2-14.7)
[2020-09-20] MEDS ORDERED: ONDA4TAB11 PO (15:34)
[2020-09-20] MEDS ORDERED: hydrOXYzine (VISTARIL/ATARAX) 25 MG capsule/tablet PO ONE (15:45)
[2020-09-20] MEDS ORDERED: HYDR25CA PO (15:53)
[2020-09-20 16:18] VITALS: BP 151/70
== END 2020-09-20 16:18 | disposition home or self-care (01) ==
LOC: EDUNIT# 14:22 → ER 14:24
DX: R11.0 Nausea (principal); R63.0 Anorexia; K21.9 Gastro-esophageal reflux disease without esophagitis; I48.91 Unspecified atrial fibrillation; E78.00 Pure hypercholesterolemia, unspecified; I50.9 Heart failure, unspecified; Z88.5 Allergy status to narcotic agent; Z85.42 Personal history of malignant neoplasm of other parts of uterus; Z68.34 Body mass index [BMI] 34.0-34.9, adult; Z95.0 Presence of cardiac pacemaker; Z95.9 Presence of cardiac and vascular implant and graft, unspecified; Z20.822 Contact with and (suspected) exposure to COVID-19; Z79.01 Long term (current) use of anticoagulants
CPT/HCPCS: 71045; 80053; 82150; 83690; 83880; 84443; 84484; 85025; 85379; 85610; 85730; 86141; 93005; 93041; 99284; U0002; 36415; 87635

== ENCOUNTER → 2020-09-30 | Outpatient (CLI) | payer MEDICARE ==
[~2020-09-30] MED LIST changes: +HYDR25CA PO; +ONDA4TAB11 PO
--- NOTE | 2020-09-30 10:34 | Diagnostic Imaging Report ---
INDICATION: Nausea. PROCEDURE: Ultrasound abdomen complete. TECHNIQUE: Multiple real-time grayscale images were obtained of the abdomen in various projections. FINDINGS: The liver appeared normal. The portal vein patent and showed a normal hepatopetal directional flow. The gallbladder normal. No stone or sludge. The bile ducts nondilated. The visualized portions of the pancreas were normal. The aorta is normal in caliber and showed normal distal tapering. Kidneys bilaterally normal in size, cortical thickness and echotexture. No hydronephrosis. No echogenic or shadowing stone. No solid or cystic renal mass. There was no ascites. IMPRESSION: Normal abdominal ultrasound. Dictated by: Dictated on workstation # [id number]
== END ==
LOC: RAD 08:30
PROVIDERS: ATTEND Internal Medicine
DX: R11.0 Nausea (principal)
CPT/HCPCS: 76700

== ENCOUNTER → 2020-10-03 | Outpatient (CLI) | payer MEDICARE ==
[~2020-10-03] MED LIST changes: +CATHETER FLUSH 10 ML SYR IV PRN
--- NOTE | 2020-10-03 15:29 | Diagnostic Imaging Report ---
INDICATION: Nausea. TECHNIQUE: The patient was administered 5.4 mCi of technetium 99m Choletec intravenously and imaging over the abdomen was performed. At 45 minutes, the patient ingested 8 ounces of Ensure and a gallbladder ejection fraction was calculated. The patient denied discomfort during the study. FINDINGS: There is homogeneous uptake of activity by the liver with prompt excretion of activity into the common duct and gallbladder. Normal passage of activity into the small bowel is noted. The gallbladder ejection fraction is normal at 61%. IMPRESSION: Normal HIDA scan and gallbladder ejection fraction. Dictated by: Dictated on workstation # [id number]
== END ==
LOC: CARD 12:45
PROVIDERS: ATTEND Internal Medicine
DX: R11.0 Nausea (principal)
CPT/HCPCS: 78227; A9537

== ENCOUNTER → 2021-11-28 | Outpatient (CLI) | payer MEDICARE ==
[~2021-11-28] MED LIST changes: -CATHETER FLUSH 10 ML SYR IV PRN
== END ==
LOC: LABNPT 11:26
PROVIDERS: ATTEND Internal Medicine Cardiovascular Disease
DX: Z53.9 Procedure and treatment not carried out, unspecified reason (principal)

== ENCOUNTER → 2021-11-28 | Outpatient (CLI) | payer MEDICARE | LOC: LABNPT 16:39 | PROVIDERS: ATTEND Internal Medicine Cardiovascular Disease | DX: Z53.9 Procedure and treatment not carried out, unspecified reason (principal) ==

== ENCOUNTER → 2022-10-10 | Outpatient (CLI) | payer MEDICARE, OTHER | LOC: CARD 08:28 | PROVIDERS: ATTEND Internal Medicine Cardiovascular Disease | DX: I08.0 Rheumatic disorders of both mitral and aortic valves (principal); I49.3 Ventricular premature depolarization | CPT/HCPCS: 93306 ==

== ENCOUNTER → 2022-10-26 | Outpatient (CLI) | payer MEDICARE, OTHER ==
[~2022-10-26] MED LIST changes: +CATHETER FLUSH 10 ML SYR IVP PRN; +REGADENOSON 0.4 MG/5 ML SYR (LEXISCAN) IV ONE
[2022-10-26 08:11] VITALS: BP 131/71
== END ==
LOC: CARD 07:30
PROVIDERS: ATTEND Internal Medicine Cardiovascular Disease
DX: I49.3 Ventricular premature depolarization (principal); I25.10 Atherosclerotic heart disease of native coronary artery without angina pectoris
CPT/HCPCS: 78452; 93017; A9502

== ENCOUNTER 2023-07-07 16:24 | Emergency (ER) | payer MEDICARE ==
[~2023-07-07] VITALS: Ht 152.4 cm; Wt 76.2 kg
[~2023-07-07 16:24] MED LIST changes: -CATHETER FLUSH 10 ML SYR IVP PRN; -REGADENOSON 0.4 MG/5 ML SYR (LEXISCAN) IV ONE
[2023-07-07 16:35] VITALS: BP 143/75
[2023-07-07] MEDS ORDERED: HYDROcodone/ACETAMINOPHEN 5 MG/325 MG TABLET PO ONE (17:00)
--- NOTE | 2023-07-07 17:13 | ED General ---
General Chief Complaint: Fever-Adult/Adol Stated Complaint: SORE THROAT/COUGH/RUNNY NOSE Nursing Triage Note: PT AMB TO [facility] WITH COMPLAINT OF SORE THROAT, COUGH, BODY ACHES, HEADACHE. STATES SYMPTOMS STARTED LAST NIGHT. Source of Information: Patient Exam Limitations: No Limitations History of Present Illness Date Seen by Provider: Jul 07, 2023 Time Seen by Provider: 16:29 Allergies and Home Medications Allergies Coded Allergies: codeine (Unverified Allergy, Unknown, 09/13/20) Patient Home Medication List Ascorbic Acid (Vitamin C) 1,000 Mg Tab.chew, 1,000 MG PO HS, (Reported) Entered as Reported by: MARY MCFARLAND on 10/12/14 1324 Atorvastatin Calcium (Atorvastatin Calcium) 40 Mg Tablet, 40 MG PO DAILY Prescribed by: RODGER MEYER on 11/23/14 1353 Ca Carbonate/Mag Oxide/Cu/Znox (Fwpycml-Qlmlmozkb-Hnjy Tab) 1 Each Tablet, 3 TAB PO HS, (Reported) Entered as Reported by: MARY MCFARLAND on 10/12/14 1324 Carvedilol (Carvedilol) 12.5 Mg Tablet, 6.25 MG PO BID, (Reported) Entered as Reported by: MARY MCFARLAND on 11/23/14 1231 Cholecalciferol (Vitamin D) 1,000 Unit Tab, 1,000 UNIT PO HS, (Reported) Entered as Reported by: MARY MCFARLAND on 10/12/14 1324 Famotidine (Pepcid) 20 Mg Tablet, 20 MG PO BID, (Reported) Entered as Reported by: MARY MCFARLAND on 11/23/14 1235 Hydroxyzine Pamoate (Vistaril) 25 Mg Capsule, 25 MG PO Q8H PRN for ANXIETY Prescribed by: VIRGINIA HOOD on 09/20/20 1553 Multivitamin (Multi Vitamin Daily) 1 Each Tablet, 1 TAB PO HS, (Reported) Entered as Reported by: MARY MCFARLAND on 10/12/14 1324 Ondansetron (Ondansetron Odt) 4 Mg Tab.rapdis, 4 MG PO Q6H PRN for NAUSEA-1ST LINE Prescribed by: VIRGINIA HOOD on 09/20/20 1534 Vitamin B Complex (Vitamin B Complex) 1 Cap Capsule, 1 CAP PO HS, (Reported) Entered as Reported by: MARY MCFARLAND on 10/12/14 1324 Vitb&C/Iron Fum/Fa/Vit E/Aa#16 (Stress Formula Energy Tablet) 1 Each Tablet, 1 TAB PO HS, (Reported) Entered as Reported by: MARY MCFARLAND on 10/12/14 1324 Warfarin Sodium (Warfarin Sodium) 5 Mg Tablet, 5 MG PO PM @ 1700, (Reported) Entered as Reported by: DAVIAN THOMPSON on 10/12/14 1026 Past Mltbwru-Yybcwk-Butpfc Hx Patient Social History Tobacco Use?: No Use of E-Cig and/or Vaping dev: No Substance use?: No Alcohol Use?: No Pt feels they are or have been: No Immunizations Up To Date Tetanus Booster (TDap): More than 5yrs Seasonal Allergies Seasonal Allergies: No Past Medical History Surgeries: Yes (Cataracts, Colonoscopy) Hysterectomy, Pacemaker Respiratory: No COPD Cardiac: Yes (CHF, Ischemic Heart Dz) Atrial Fibrillation, High Cholesterol Neurological: No 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 Uterus?) [employer] History: Hysterectomy Sexually Transmitted Disease: No HIV/AIDS: No Genitourinary: No Gastrointestinal: Yes Gastroesophageal Reflux, Diverticulosis, Hemorrhoids Musculoskeletal: Yes (Osteoarthritis) Endocrine: No Cataract Loss of Vision: Denies Hearing Impairment: Denies Cancer: Yes Uterine Did You Recieve Any Treatments: No Psychosocial: No Integumentary: No Blood Disorders: No Family Medical History No Pertinent Family Hx Physical Exam Vital Signs Vital Signs - First Documented 07/07/23 16:35 Temp 38.1 Pulse 78 Resp 16 B/P (MAP) 143/75 (97) Pulse Ox 96 O2 Delivery Room Air Capillary Refill : Less Than 3 Seconds Height, Weight, BMI Height: 5'1.00" Weight: 202lbs. 6.0oz. 91.133546zp; 32.00 BMI Method:Stated Progress/Results/Core Measures Suspected Sepsis SIRS Temperature: Pulse: 78 Respiratory Rate: 16 Blood Pressure 143 /75 Mean: 97 Results/Orders Lab Results Laboratory Tests Test 07/07/23 16:38 Range/Units Influenza Type A (RT-PCR) Not Detected Not Detecte Influenza Type B (RT-PCR) Not Detected Not Detecte SARS-CoV-2 RNA (RT-PCR) Detected H Not Detecte My Orders Orders - BERNARDINO FONTAINE MD Covid 19 Inhouse Test (07/07/23 16:29) Influenza A And B By Pcr (07/07/23 16:29) Hydrocodone/Apap 5/325 Tablet (Hydrocod (07/07/23 17:00) Medications Given in ED Current Medications Medications Dose Ordered Sig/Rocky Route Start Time Stop Time Status Last Admin Dose Admin Acetaminophen/ Hydrocodone Bitart 1 ea ONCE ONCE PO 07/07/23 17:00 07/07/23 17:01 DC 07/07/23 17:21 1 EA Vital Signs/I&O 07/07/23 16:35 Temp 38.1 Pulse 78 Resp 16 B/P (MAP) 143/75 (97) Pulse Ox 96 O2 Delivery Room Air Capillary Refill : Less Than 3 Seconds Blood Pressure Mean: 97 Progress Note : Progress Note Departure Impression Primary Impression: COVID-19 Additional Impressions: Cough Qualified Codes: R05.1 - Acute cough Sore throat Anticoagulated on warfarin Disposition: HOME, SELF-CARE Condition: Improved Departure-Patient Inst. Decision time for Depature: 18:05 Referrals: MARCELLE GRACIA DO (PCP/Family) Primary Care Physician Patient Instructions: COVID-19 ED Add. Discharge Instructions: Drink plenty of clear liquids to stay well-hydrated. Continue your usual medications as previously directed. You may take Tylenol (acetaminophen) up to 1000 mg every 6 hours as needed for pain or fever. Be careful not to exceed more than 4000 mg of acetaminophen from all sources within 1 day. Vxhu-ltx-vqtwuba medications such as NyQuil, other cough and cold medications, and prescription medications such as hydrocodone may contain acetaminophen. Please check the active ingredients on these medications. You may use hydrocodone/acetaminophen as prescribed for pain. Hydrocodone may cause drowsiness, so use with caution. Do not drive, operate machinery, or make important decisions while on hydrocodone. Hydrocodone may also cause co nstipation, so you may wish to use a stool softener such as Colace while taking hydrocodone. Hydrocodone/acetaminophen is an excellent pain reliever for your sore throat, but it is also ineffective cough suppressant. A prescription for Paxlovid (COVID antiviral medication) was sent to the pharmacy. If you elect to start this medication, please have your INR checked during treatment and again a few days after treatment. Paxlovid can impact your INR. Return to the ER if you have worsening of symptoms despite following these instructions. Also return to the emergency room if you have notable shortness of breath, repeated oxygen levels less than 92%, or any oxygen level less than 90%. All discharge instructions reviewed with patient and/or family. Voiced understanding. Scripts Nirmatrelvir/Ritonavir (Paxlovid 300-100 mg Dose Pack) 300 Mg (150 Mg X 2)-100 Mg Tab.ds.pk 1 EACH PO BID, #1 PKG Prov: BERNARDINO FONTAINE MD 07/07/23 Hydrocodone/Acetaminophen (Hydrocodone-Acetamin 5-325 mg) 5 Mg-325 Mg Tablet 1 TAB PO Q4H PRN for PAIN-MODERATE (5-7), #10 TAB For moderate to severe pain or cough. Prov: BERNARDINO FONTAINE MD 07/07/23 BERNARDINO FONTAINE MD Jul 07, 2023 17:13
[2023-07-07] MEDS ORDERED: ACHD5005 PO (18:11)
[2023-07-07] MEDS ORDERED: NIRM1TAB9 PO (18:11)
== END 2023-07-07 18:18 | disposition home or self-care (01) ==
LOC: EDUNIT# 16:24 → ER 16:26
DX: U07.1 COVID-19 (principal); R05.9 Cough, unspecified; J02.9 Acute pharyngitis, unspecified; Z79.01 Long term (current) use of anticoagulants
CPT/HCPCS: 87636; 99283